=== PATIENT | female | born 1990 | race Caucasian/White ===

== ENCOUNTER 2017-05-25 12:33 | Emergency (ER) | payer MEDICAID ==
[~2017-05-25] VITALS: Ht 154.9 cm; Wt 62.4 kg
[~2017-05-25 12:33] MED LIST: IBUP-1221 PO
[2017-05-25 12:40] VITALS: BP 123/79
[2017-05-25] MEDS ORDERED: ONDANSETRON ODT 8 MG PO ONE (13:04)
[2017-05-25] MEDS ORDERED: ONDANSETRON ODT 4 MG ONE (14:02)
== END 2017-05-25 14:07 | disposition home or self-care (01) ==
LOC: ED 14:01
DX: S06.0X0A Concussion without loss of consciousness, initial encounter (principal); S00.33XA Contusion of nose, initial encounter; F17.210 Nicotine dependence, cigarettes, uncomplicated; Y04.2XXA Assault by strike against or bumped into by another person, initial encounter; Y93.89 Activity, other specified; Y92.89 Other specified places as the place of occurrence of the external cause; Y99.8 Other external cause status
CPT/HCPCS: 70450; 70486; 99284; Q0162

== ENCOUNTER 2017-08-17 00:48 | Emergency (ER) | payer MEDICAID ==
[~2017-08-17] VITALS: Ht 154.9 cm; Wt 64.4 kg
[2017-08-17] MEDS ORDERED: HYDROmorphone 2 MG/ML, 1ML IM STA (01:05)
[2017-08-17] MEDS ORDERED: HYDROmorphone 2 MG/ML, 1ML ONE (01:15)
[2017-08-17] MEDS ORDERED: ONDANSETRON ODT 4 MG ONE (01:15)
[2017-08-17] MEDS ORDERED: ONDANSETRON ODT 4 MG PO ONE (01:30)
[2017-08-17 01:39] LABS: BASOPHILS # (AUTO) 0.11 x10^3/uL (0-0.1); BASOPHILS % (AUTO) 1 % (0-1); EOSINOPHILS # (AUTO) 0.11 x10^3/uL (0-0.4); EOSINOPHILS % (AUTO) 1 % (1-7); LYMPHOCYTES # (AUTO) 2.95 x10^3/uL (1-3.4); LYMPHOCYTES % (AUTO) 26 % (22-44); MD NO; MEAN CORPUSCULAR HEMOGLOBIN 31.5 pg (27.0-34.8); MEAN CORPUSCULAR HGB CONC 34.4 g/dL (32.4-35.8); MEAN CORPUSCULAR VOLUME 91.6 fL (80-100); MEAN PLATELET VOLUME 8.1 fL (7.4-10.4); MONOCYTES # (AUTO) 0.69 x10^3/uL (0.2-0.8); MONOCYTES % (AUTO) 6 % (2-9); NEUTROPHILS % (AUTO) 66 % (42-75); PLATELET COUNT 348 x10^3/uL (130-400); RED BLOOD COUNT 4.75 x10^6/uL (3.82-5.3); RED CELL DISTRIBUTION WIDTH 13.7 % (9.6-15.2)
[2017-08-17 01:51] LABS: ALBUMIN 4.3 g/dL (3.4-5.0); ANION GAP 12 mmol/L (5-15); CALCIUM 9.2 mg/dL (8.5-10.1); CHLORIDE 105 mmol/L (98-107)
[2017-08-17 01:56] LABS: CREATININE 0.83 mg/dL (0.55-1.02)
[2017-08-17 02:06] LABS: CULTURE INDICATED? YES; MICROSCOPIC INDICATED
[2017-08-17] MEDS ORDERED: CEFTRIAXONE 1,000 MG IM ONE (02:30)
[2017-08-17] MEDS ORDERED: LIDOCAINE-MPF 1%, 2ML ONE (02:35)
[2017-08-17] MEDS ORDERED: CEFTRIAXONE 1,000 MG ONE (02:35)
[2017-08-17 03:24] VITALS: BP 111/66
== END 2017-08-17 03:26 | disposition home or self-care (01) ==
LOC: ED 02:10
DX: N30.91 Cystitis, unspecified with hematuria (principal); N92.6 Irregular menstruation, unspecified; F17.200 Nicotine dependence, unspecified, uncomplicated
CPT/HCPCS: 36415; 80048; 81001; 82040; 84703; 85025; 87086; 96372; 99284; J0696; J1170; Q0162